=== PATIENT | female | born 1965 | race African-American/Black ===

== ENCOUNTER 2017-03-11 15:20 | Emergency (ER) | payer OTHER ==
[2017-03-11] MEDS ORDERED: NORMAL SALINE 1,000 ML IV ONE (16:02)
[2017-03-11 16:05] LABS: Hematocrit 41.2 % (37.0-47.0); Hemoglobin 13.5 gm/dL (12.5-16.0); Mean Corpuscular Hemoglobin 28.2 pg (27-31); Mean Corpuscular Hgb Conc 32.8 g/dl (32-36); Mean Platelet Volume 9.5 fl (6.0-9.5); Neutrophil # 8.2 K/mm3 (1.3-6.0); Neutrophil % 60.2 % (42-75.0); Platelet Count 331 K/mm3 (150-450); Red Blood Count 4.79 M/mm3 (4.2-5.4); Red Cell Distribution Width 15.4 % (11.5-14.0); White Blood Count 13.6 K/mm3 (4.0-10.5)
--- NOTE | 2017-03-11 16:12 | ERNOTE ---
Abdominal HPI - Narrative Date of Service: 03/11/17 - General Chief Complaint: Abdominal Pain Time Seen by Provider: 03/11/17 15:50 Source: patient - Immun/Allergies/Home Medications Immunizatons: IMMUNIZATION HX Immunizations Up to Date Yes History of Influenza Vaccine No Hx Pneumococcal Vaccination No Allergies/Adverse Reactions: Allergies Sulfa (Sulfonamide Antibiotics) [Sulfa(Sulfonamide Antibiotics)] Allergy (Mild, Verified 03/11/17 15:34) Hives sulfamethoxazole [From Bactrim] Allergy (Mild, Verified 03/11/17 15:34) Hives trimethoprim [From Bactrim] Allergy (Mild, Verified 03/11/17 15:34) Hives diphenhydramine HCl [From Benadryl] Allergy (Unknown, Verified 03/11/17 15:34) methylprednisolone [From Medrol] Adverse Reaction (Verified 03/11/17 15:34) Home Medications: HOME MEDICATIONS Magnesium Citrate 295 ml PO ONCE #1 solution 03/11/17 [Last Taken Unknown] - History of Present Illness Narrative: 51-year-old female presenting to the emergency room where she states that she had bloody stool today. Patient states that she also has graves disease and has not been treated for it for a year. patient states she has had in the past a gastric ulcer that she didn't follow up on due to the of her youngest son. Date (Duration): 03/11/17 Timing: constant Quality: mild Activities at Onset: none Associated Symptoms: Present: back pain, diarrhea-gross blood. Absent: headache , chest pain, fever/chills, nausea, vomiting Prior Abdominal Problems: Present: none Review of Systems - Review of Systems Constitutional: Present: no symptoms reported. Absent: recent illness, fever, chills, diaphoresis, weakness, fatigue, decreased activity level EYE: Present: no symptoms reported ENT: Present: no symptoms reported Respiratory: Present: no symptoms reported Cardiology: Present: no symptoms reported Gastrointestinal/Abdominal: Present: See HPI, abdominal pain Genitourinary: Present: no symptoms reported Musculoskeletal: Present: no symptoms reported Skin: Present: no symptoms reported Neurological: Present: no symptoms reported Endocrine: Present: other - going to menopause Hematologic/Lymphatic: Present: no symptoms reported Psych: Present: no symptoms reported All Other Systems: All systems neg except as marked - Patient's Past Medical History Patient History - Medical: Arthritis, Chronic Pain, GERD Additional info: Graves Disease Patient History - Cardiac/Respiratory: Asthma, COPD, Hyperlipidemia Patient History - Cancer: No Hx of Cancer Patient History - Surgical Procedures: Tubal Ligation, Other Patient History - Other: None - Family History Father Family History - Medical: - Social History Living Situations: home Abuse History: No History of abuse Psych History: No pertinent hx Smoking Status: Current every day smoker Have you smoked in the past 12 months: Yes Alcohol Use: none Drug Use: none - Immunizations Immunizations Up to Date: Yes Hx Pneumococcal Vaccination: No History of Influenza Vaccine: No Physical Exam - Physical Exam Narrative: belly is soft, rectal exam was clean for acute blood or stool, unable to get a sample. General Appearance: Present: wd/wn, alert, no apparent distress Eye Exam: Normal inspection: bilateral Ears, Nose, Throat: Present: normal ENT inspection, normal pharynx. Absent: sinus pain/drainage Neck: Present: normal inspection, nontender Respiratory: Present: no respiratory distress, normal breath sounds, no accessory muscle use, chest nontender, lungs clear Cardiovascular/Chest: Present: regular rate, rhythm, no murmur, normal peripheral pulses Gastrointestinal/Abdominal: Present: normal bowel sounds, nontender, soft Rectal Exam: Present: nontender, normal rectal tone, tenderness. 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 Results and Orders: reviewed prior labs, WBC have been constantly high. UA negative - Vital Signs Patient's Vital Signs:: I have reviewed the patient's vital signs. Vital Signs: Vital Signs 03/11/17 03/11/17 15:30 15:58 Temperature 36.8 C Pulse Rate 97 94 Respiratory 14 24 H Rate Blood Pressure 110/73 109/66 O2 Sat by Pulse 94 93 Oximetry - X-Ray X-Ray #1 X-Ray: abdomen Interpretation: Reviewed by me X-ray Comments: TECHNIQUE: AP upright and supine views of the abdomen were obtained, total of 3 images. COMPARISONS: None available. FINDINGS: Abdomen Flat W/ Upright *: No subdiaphragmatic free air. Somewhat elongated appearance of the right hepatic shadow reaching below the level of the kidneys. Stool retention noted within the proximal colonic segments in the right lower quadrant. There is no definite signs of bowel obstruction. Multiple rounded calcifications of the pelvis noted. Curvilinear calcifications of the pelvis also suggested, probably related to atherosclerosis. Potential distal ureteral calcifications or appendicolith would be difficult to exclude. Patient has a vascular stent projecting over the lower lumbar spine and slightly left of midline. Osseous structures are intact. Transitional lumbosacral anatomy noted. IMPRESSION: 1. Stool retention within the proximal segments of the colon. 2. No evidence for bowel obstruction. 3. Multiple pelvic calcifications as discussed above. Probably vascular/phleboliths, but potential distal ureteral calcification or appendicoliths would be difficult to exclude. Clinical correlation is advised. 4. Potential hepatomegaly versus Derrick's lobe of liver. Electronically signed by Ramona Don M.D.. - Progress/Reassessment Chief Complaint: Abdominal Pain Progress:: Unchanged Plan - Plan Plan: patient given information about a PCP and GI doctor. patient was unable to have any bloody stool and no blood was observed during rectal check. Patient educated of follow up care imprtance and the need for it. Patient states she will find a PCP now that she is settled here from [place]. Departure - Departure Clinical Impression: Constipation Qualifiers: Constipation type: other constipation type Qualified Code(s): K59.09 - Other constipation Disposition: Home Follow Up Needed Condition: Stable Instructions: Constipation, Adult, [id number] Additional Instructions: Continue any previous medications as recommended. Please follow up with her primary care provider in the next 2-3 days. Return to the emergency room if you start developing bright red blood in your stool, unable to pass stool after your medication. return to the emergency room for any other symptoms that return. Referrals: Kyra Wells MD [Primary Care Provider] - Prescriptions: Magnesium Citrate 295 ml PO ONCE #1 solution
[2017-03-11 16:26] LABS: Albumin * 3.4 gm/dl (3.4-5.0); Anion Gap 15.8 mmol/L (6.8-13.8); BUN/Creatinine Ratio 11.8 (9.0-21.6); Bilirubin, Total 0.3 mg/dL (0.0-1.1); Ca. Corrected For Albumin 9.6 mg/dL (8.4-10.2); Calcium * 9.4 mg/dL (7.9-10.9); Carbon Dioxide 24.2 mmol/L (24-32.6); T4 Free * 0.83 ng/dL (0.76-1.46); TSH * 0.717 uIU/mL (0.358-3.74); Total Protein 7.7 gm/dL (6.2-8.2)
[2017-03-11 17:18] LABS: Urine Appearance Clear; Urine Bilirubin Negative (NEGATIVE); Urine Blood Negative /ul (NEGATIVE); Urine Color Yellow; Urine Ketone Negative (NEGATIVE); Urine Nitrite Negative (NEGATIVE); Urine Protein Negative (NEGATIVE); Urine RBC None Seen /hpf (0-5); Urine Specific Gravity >=1.030 SP.GR. (1.005-1.010); Urine Urobilinogen Normal (NORMAL); Urine WBC None Seen /hpf (0-5)
[2017-03-11 17:19] LABS: Urine Bacteria None Seen
[2017-03-11 17:29] LABS: Cocaine Ur Negative (NEGATIVE); Urine Barbiturate Negative (NEGATIVE); Urine Benzodiazepines Negative (NEGATIVE); Urine Opiates Negative (NEGATIVE); Urine PCP Negative (NEGATIVE); Urine THC Negative (NEGATIVE)
[2017-03-11] MEDS ORDERED: ACETAMINOPHEN 500 MG TABLET PO ONE (17:47)
[2017-03-11 17:56] VITALS: BP 105/53
== END 2017-03-11 17:57 | disposition home or self-care (01) ==
LOC: ER 15:20
DX: K59.09 Other constipation (principal); F17.200 Nicotine dependence, unspecified, uncomplicated

== ENCOUNTER 2017-06-20 08:10 | Emergency (ER) | payer OTHER ==
--- NOTE | 2017-06-20 10:03 | ERNOTE ---
Upper Extremity HPI - Narrative Date of Service: 04/20/17 - General Extremities Pain Location: shoulder: left - In AC joint area Source: patient Exam Limitations: no limitations - Immun/Allergies/Home Medications Immunizations: IMMUNIZATION HX Immunizations Up to Date Yes History of Influenza Vaccine No Hx Pneumococcal Vaccination No Allergies/Adverse Reactions: Allergies Allergy/AdvReac Type Severity Reaction Status Date / Time Sulfa (Sulfonamide Allergy Mild Hives Verified 06/20/17 08:23 Antibiotics) [Sulfa(Sulfonamide Antibiotics)] sulfamethoxazole Allergy Mild Hives Verified 06/20/17 08:23 [From Bactrim] trimethoprim [From Bactrim] Allergy Mild Hives Verified 06/20/17 08:23 diphenhydramine HCl Allergy Unknown Verified 06/20/17 08:23 [From Benadryl] methylprednisolone AdvReac Verified 06/20/17 08:23 [From Medrol] Home Medications: HOME MEDICATIONS Atorvastatin Calcium [Lipitor] 20 mg PO DAILY 06/20/17 [Last Taken Unknown] Bupropion HCl [Wellbutrin Sr] 100 mg PO DAILY 06/20/17 [Last Taken Unknown] Cyclobenzaprine HCl [Flexeril] 10 mg PO TID PRN #30 tab 06/20/17 [Last Taken Unknown] HYDROcodone/ACETAMINOPHEN [Hydrocodon-Acetaminoph 7.5-325] 1 each PO QID PRN # 16 tablet NS MDD 4 06/20/17 [Last Taken Unknown] Polyethylene Glycol 3350 [Miralax] 17 gm PO DAILY 06/20/17 [Last Taken Unknown] - History of Present Illness Occurred: yesterday Location of Incident: home Severity: moderate Method of Injury: Reports: no apparent injury Review of Systems - Review of Systems ENT: Present: sore throat Respiratory: Present: no symptoms reported Cardiology: Present: no symptoms reported Gastrointestinal/Abdominal: Present: no symptoms reported Genitourinary: Present: no symptoms reported Musculoskeletal: Present: other - Left shoulder pain sharp aching in AC joint area. No injury reported. States she woke up that way and it has not improved. Worsens with movement. Denies any numbness down into arm. Active ROM but limited due to discomfort Skin: Present: no symptoms reported Neurological: Present: no symptoms reported Endocrine: Present: no symptoms reported Psych: Present: no symptoms reported - Patient's Past Medical History Patient History - Medical: Arthritis, Chronic Pain, GERD Patient History - Cardiac/Respiratory: Asthma, COPD, Hyperlipidemia Patient History - Cancer: No Hx of Cancer Patient History - Surgical Procedures: Tubal Ligation, Other Patient History - Other: None - Family History Father Family History - Medical: - Social History Living Situations: home Abuse History: No History of abuse Psych History: No pertinent hx Alcohol Use: none Drug Use: none - Immunizations Immunizations Up to Date: Yes Hx Pneumococcal Vaccination: No History of Influenza Vaccine: No Physical Exam - Physical Exam General Appearance: Present: wd/wn, alert, no apparent distress Head Exam: Present: normal inspection Ears, Nose, Throat: Present: normal ENT inspection, pharyngeal erythema, other - No exucate. Uvula midline Neck: Present: normal inspection, nontender, supple - No lymphadenopathy, full range of motion Respiratory: Present: no respiratory distress, normal breath sounds, no accessory muscle use, chest nontender, lungs clear Cardiovascular/Chest: Present: regular rate, rhythm, no murmur, normal peripheral pulses Peripheral Pulses: N=norm/S=strong/W=weak/B=bound/A=absent: Radial (R): Normal, Radial (L): Normal Gastrointestinal/Abdominal: Present: normal bowel sounds, nontender Back Exam: Present: normal inspection Extremity Exam: Present: other - Evaluation AC joint find no obvious seperation with movement. Has active but limited ROM of the shoulder including rotation, cross body, flexion, and extention. 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 Sensation intact throughout the arm. No scapular pain with palpation. No obvious shoulder deformity. Neurological Exam: Present: alert, oriented, normal mood/affect, no motor/ sensory deficits Skin Exam: Present: normal color, warm/dry ED Progress - Results and Orders Patient's Lab Results:: I have reviewed the patient's lab results. - Vital Signs Patient's Vital Signs:: I have reviewed the patient's vital signs. Vital Signs: Vital Signs 06/20/17 06/20/17 06/20/17 08:19 09:04 09:40 Temperature 36.1 C L Pulse Rate 83 79 75 Respiratory 14 12 12 Rate Blood Pressure 105/53 98/63 110/68 O2 Sat by Pulse 90 95 97 Oximetry - X-Ray X-Ray #1 X-Ray: shoulder Interpretation: Reviewed by me X-ray Comments: No obvious fracture but may need MRI. - Progress/Reassessment Chief Complaint: Shoulder Injury/Pain Progress:: Improved - Transfer of Care Expected Disposition: Discharge Departure Clinical Impression: Shoulder arthralgia - Departure Disposition: Home Follow Up Needed Condition: Good Instructions: Shoulder Pain, [id number] Additional Instructions: No acute fracture. However there could be some soft tissue injury which should be addressed by family provider. Please follow up in the next 1-2 days for additional evaluation and discussion concerning physical therapy or MRI. Addition medication must be received by family provider. Combination of muscle relaxant and pain medication may make you drowsy so take with caution. Return to ER if you worsen. Otherwise follow previous instructions. Referrals: Kyra Wells MD [Primary Care Provider] - Prescriptions: Cyclobenzaprine HCl [Flexeril] 10 mg PO TID PRN #30 tab PRN Reason: MUSCLE SPASMS HYDROcodone/ACETAMINOPHEN [Hydrocodon-Acetaminoph 7.5-325] 1 each PO QID PRN # 16 tablet NS MDD 4 PRN Reason: Muscle Pain
[2017-06-20 10:13] VITALS: BP 112/72
[2017-06-20] MEDS ORDERED: KETOROLAC TROMETHAMINE 60 MG/2 ML VIAL IM ONE (10:33)
[2017-06-20] MEDS ORDERED: CYCLOBENZAPRINE HCL 10 MG TABLET ONE (10:33)
[2017-06-20] MEDS: KETOROLAC TROMETHAMINE 60 MG/2 ML VIAL IM ONE (10:35)
[2017-06-20] MEDS: CYCLOBENZAPRINE HCL 10 MG TABLET PO ONE (10:35)
== END 2017-06-20 11:18 | disposition home or self-care (01) ==
LOC: ER 08:10
DX: M25.512 Pain in left shoulder (principal); E78.5 Hyperlipidemia, unspecified; K21.9 Gastro-esophageal reflux disease without esophagitis